=== PATIENT | male | born 1960 | race Hispanic/Latino ===

== ENCOUNTER 2019-01-15 16:17 | Emergency (ER) | payer BC, OTHER, SELFPAY ==
[2019-01-15 16:57] LABS: Absolute Lymphocytes (CBC) 1.9 K/uL (0.7-4.9); Eosinophils % 5.9 % (0-4.4); Hematocrit 42.4 % (39.6-49.0); Lymphocytes % 25.4 % (15.3-44.8); MPV 7.8 fL (7.6-11.3); Monocytes % 5.5 % (3.3-12.3); RBC Red Blood Cell Count 4.98 M/uL (4.33-5.43)
[2019-01-15 17:02] LABS: Protime INR 1.1
[2019-01-15 17:14] LABS: ALT/SGPT 24 U/L (12-78); AST/SGOT 14 U/L (15-37); Albumin 3.7 g/dL (3.4-5.0); Alkaline Phosphatase 90 U/L (45-117); BUN Blood Urea Nitrogen 13 mg/dL (7-18); Bicarbonate 30 mmol/L (21-32); Bilirubin Direct 0.2 mg/dL (0-0.2); Bilirubin Total 0.5 mg/dL (0.2-1.0); Glucose Level 116 mg/dL (74-106); Magnesium 2.1 mg/dL (1.8-2.4); NT PRO-BNP 108 pg/mL (<125); Potassium 3.8 mmol/L (3.5-5.1); Protein, Total 8.1 g/dL (6.4-8.2); Sodium Level 143 mmol/L (136-145); Troponin (Emerg Dept Use Only) < 0.02 ng/mL (0.0-0.045)
--- NOTE | 2019-01-15 17:33 | RAD REPORT ---
EXAM DESCRIPTION: RAD - Chest Single View - 01/15/2019 4:53 pm CLINICAL HISTORY: Shortness of breath, history of atrial fibrillation COMPARISON: November 2015 TECHNIQUE: AP portable chest image was obtained 1648 hours . FINDINGS: Lung volumes are low. Interstitial markings are prominent but not clearly different from c omparison. This could potentially mask early interstitial edema or infiltrate. Heart size is prominen t, magnified by body habitus and AP technique. No measurable pleural effusion and no pneumothorax. No acute bony abnormality seen. No acute aortic findings suspected. IMPRESSION: Shallow inspiration film showing no peripheral mass or consolidation. Chest is not substantially different from comparison. Shallow inspiration could mask early failure or volume overload.
--- NOTE | 2019-01-15 18:05 | EDPHYS ---
Physician Documentation [facility] Name: Tari Shen Jr Age: 58 yrs Sex: Male : 1960 Arrival Date: 01/15/2019 Time: 16:18 Bed 27 Private MD: ED Physician Jose Montanez HPI: 01/15 18:01 This 58 yrs old Male presents to ER via Ambulatory with complaints of iban Palpitations, Shortness Of Breath. 18:01 The patient presents with a history of irregular heart beat, heart racing. Context: The iban symptoms occur with light activity, with strenuous activity. Onset: The symptoms/episode began/occurred just prior to arrival. Duration: The patient or guardian reports a single episode. Modifying factors: The symptoms are aggravated by nothing. The symptoms are alleviated by remaining still, rest. Associated signs and symptoms: The patient has no apparent associated signs or symptoms. Severity of symptoms: At their worst the symptoms were mild in the emergency department the symptoms have improved moderately. The patient has experienced similar episodes in the past, several times. Historical: - Allergies: 16:20 No Known Allergies; aa5 - PMHx: 16:20 Atrial Fib; Hyperlipidemia; Hypertension; CHF; aa5 - PSHx: 16:20 Cholecystectomy; aa5 - Immunization history:: Adult Immunizations up to date. - Ebola Screening: : No symptoms or risks identified at this time. - Social history:: Smoking status: Patient/guardian denies using tobacco. ROS: 18:01 Constitutional: Negative for fever, chills, and weight loss, Eyes: Negative for injury, iban pain, redness, and discharge, ENT: Negative for injury, pain, and discharge, Neck: Negative for injury, pain, and swelling, Respiratory: Negative for shortness of breath, cough, wheezing, and pleuritic chest pain, Abdomen/GI: Negative for abdominal pain, nausea, vomiting, diarrhea, and constipation, Back: Negative for injury and pain, : Negative for injury, bleeding, discharge, and swelling, MS/Extremity: Negative for injury and deformity, Skin: Negative for injury, rash, and discoloration, Neuro: Negative for headache, weakness, numbness, tingling, and seizure, Psych: Negative for depression, anxiety, suicide ideation, homicidal ideation, and hallucinations, Allergy/Immunology: Negative for hives, rash, and allergies, Endocrine: Negative for neck swelling, polydipsia, polyuria, polyphagia, and marked weight changes, Hematologic/Lymphatic: Negative for swollen nodes, abnormal bleeding, and unusual bruising. 18:01 Cardiovascular: Positive for palpitations. Exam: 18:01 Constitutional: This is a well developed, well nourished patient who is awake, alert, iban and in no acute distress. Head/Face: Normocephalic, atraumatic. Eyes: Pupils equal round and reactive to light, extra-ocular motions intact. Lids and lashes normal. Conjunctiva and sclera are non-icteric and not injected. Cornea within normal limits. Periorbital areas with no swelling, redness, or edema. ENT: Nares patent. No nasal discharge, no septal abnormalities noted. Tympanic membranes are normal and external auditory canals are clear. Oropharynx with no redness, swelling, or masses, exudates, or evidence of obstruction, uvula midline. Mucous membranes moist. Neck: Trachea midline, no thyromegaly or masses palpated, and no cervical lymphadenopathy. Supple, full range of motion without nuchal rigidity, or vertebral point tenderness. No Meningismus. Chest/axilla: Normal chest wall appearance and motion. Nontender with no deformity. No lesions are appreciated. Cardiovascular: Regular rate and rhythm with a normal S1 and S2. No gallops, murmurs, or rubs. Normal PMI, no JVD. No pulse deficits. Respiratory: Lungs have equal breath sounds bilaterally, clear to auscultation and percussion. No rales, rhonchi or wheezes noted. No increased work of breathing, no retractions or nasal flaring. Abdomen/GI: Soft, non-tender, with normal bowel sounds. No distension or tympany. No guarding or rebound. No evidence of tenderness throughout. Back: No spinal tenderness. No costovertebral tenderness. Full range of motion. Male : Normal genitalia with no discharge or lesions. Skin: Warm, dry with normal turgor. Normal color with no rashes, no lesions, and no evidence of cellulitis. MS/ Extremity: Pulses equal, no cyanosis. Neurovascular intact. Full, normal range of motion. Neuro: Awake and alert, GCS 15, oriented to person, place, time, and situation. Cranial nerves II-XII grossly intact. Motor strength 5/5 in all extremities. Sensory grossly intact. Cerebellar exam normal. Normal gait. Psych: Awake, alert, with orientation to person, place and time. Behavior, mood, and affect are within normal limits. Vital Signs: 16:21 BP 178 / 105; Pulse 114; Resp 26 S; Temp 98.1(O); Pulse Ox 94% on R/A; Pain 0/10; aa5 16:57 BP 178 / 81; Pulse 76; Resp 14 S; Pulse Ox 100% on R/A; ca1 18:15 BP 167 / 83; Pulse 81; Resp 18 S; Pulse Ox 95% on R/A; ca1 MDM: 16:25 Patient medically screened. [facility] 18:02 Data reviewed: vital signs, nurses notes, lab test result(s), EKG, radiologic studies. iban 01/15 16:33 Order name: Basic Metabolic Panel 01/15 16:33 Order name: CBC with Diff; Complete Time: 17:47 ca1 01/15 16:33 Order name: LFT's; Complete Time: 17:47 01/15 16:33 Order name: Magnesium; Complete Time: 17:47 01/15 16:33 Order name: NT PRO-BNP; Complete Time: 17:47 ca1 01/15 16:33 Order name: PT-INR; Complete Time: 17:47 ca1 01/15 16:33 Order name: Troponin (emerg Dept Use Only); Complete Time: 17:47 ca1 01/15 16:33 Order name: XRAY Chest (1 view); Complete Time: 17:47 ca1 01/15 16:33 Order name: EKG; Complete Time: 16:35 ca1 01/15 16:33 Order name: Cardiac monitoring; Complete Time: 16:34 ca1 01/15 16:33 Order name: EKG - Nurse/Tech; Complete Time: 16:34 ca1 01/15 16:34 Order name: Basic Metabolic Panel; Complete Time: 17:47 EDMS 01/15 17:47 Order name: TSH 01/15 18:03 Order name: EKG; Complete Time: 18:04 iban 01/15 16:33 Order name: IV Saline Lock; Complete Time: 16:34 ca1 01/15 16:33 Order name: Labs collected and sent; Complete Time: 16:34 ca1 07/15 16:33 Order name: O2 Per Protocol; Complete Time: 16:34 ca1 01/15 16:33 Order name: O2 Sat Monitoring; Complete Time: 16:34 ca1 01/15 18:03 Order name: EKG - Nurse/Tech; Complete Time: 18:11 iban Administered Medications: No medications were administered Disposition: 01/15/19 18:04 Discharged to Home. Impression: Palpitations, Atrial fibrillation and flutter. - Condition is Stable. - Discharge Instructions: Atrial Fibrillation, Palpitations, Atrial Flutter, Palpitations, [id number], Atrial Fibrillation, [id number]. - Medication Reconciliation Form, Thank You Letter, Antibiotic Education, Prescription Opioid Use form. - Follow up: Private Physician; When: 2 - 3 days; Reason: Recheck today's complaints, Continuance of care, Re-evaluation by your physician. Follow up: Say Mcrae MD; When: 2 - 3 days; Reason: Recheck today's complaints, Continuance of care, Re-evaluation by your physician. - Problem is new. - Symptoms have improved. Signatures: Dispatcher [employer] EDJose Ng MD MD cha Calderon, Audri, RN RN aa5 Lulu Selby RN RN ss Estrellita Marshall RN RN ca1 Corrections: (The following items were deleted from the chart) 18:21 18:04 01/15/2019 18:04 Discharged to Home. Impression: Palpitations; Atrial ss fibrillation and flutter. Condition is Stable. Forms are Medication Reconciliation Form, Thank You Letter, Antibiotic Education, Prescription Opioid Use. Follow up: Private Physician; When: 2 - 3 days; Reason: Recheck today's complaints, Continuance of care, Re-evaluation by your physician. Follow up: Say Mcrae; When: 2 - 3 days; Reason: Recheck today's complaints, Continuance of care, Re-evaluation by your physician. Problem is new. Symptoms have improved. iban
--- NOTE | 2019-01-15 18:05 | ER ---
Nurse's Notes [facility] Name: Tari Shen Jr Age: 58 yrs Sex: Male : 1960 Arrival Date: 01/15/2019 Time: 16:18 Bed 27 Private MD: Diagnosis: Palpitations;Atrial fibrillation and flutter Presentation: 01/15 16:18 Presenting complaint: Patient states: "I started feeling short of breath and having aa5 palpitations about 10 minutes ago". Pt denies pain. 16:18 Acuity: NIMESH 2 aa5 16:18 Transition of care: patient was not received from another setting of care. Onset of aa5 symptoms was January 15, 2019. Risk Assessment: Do you want to hurt yourself or someone else? Patient reports no desire to harm self or others. Care prior to arrival: None. 16:18 Method Of Arrival: Ambulatory aa5 16:30 Initial Sepsis Screen: Does the patient meet any 2 criteria? No. Patient's initial ca1 sepsis screen is negative. Does the patient have a suspected source of infection? No. Patient's initial sepsis screen is negative. Triage Assessment: 16:30 General: Appears in no apparent distress. comfortable, Behavior is calm, cooperative, ca1 appropriate for age. Pain: Denies pain. Respiratory: Reports shortness of breath at rest Onset: The symptoms/episode began/occurred suddenly, the patient has mild shortness of breath. Historical: - Allergies: 16:20 No Known Allergies; aa5 - PMHx: 16:20 Atrial Fib; Hyperlipidemia; Hypertension; CHF; aa5 - PSHx: 16:20 Cholecystectomy; aa5 - Immunization history:: Adult Immunizations up to date. - Ebola Screening: : No symptoms or risks identified at this time. - Social history:: Smoking status: Patient/guardian denies using tobacco. Screenin:30 Abuse screen: Denies threats or abuse. Denies injuries from another. Nutritional ca1 screening: No deficits noted. Tuberculosis screening: No symptoms or risk factors identified. Fall Risk IV access (20 points). Assessment: 16:30 General: Appears in no apparent distress. comfortable, Behavior is calm, cooperative, ca1 appropriate for age. 16:30 Pain: Denies pain. Neuro: Level of Consciousness is awake, alert, obeys commands, ca1 Oriented to person, place, time, situation. Cardiovascular: Heart tones S1 S2 present Capillary refill < 3 seconds Patient's skin is warm and dry. Pulses are all present. Rhythm is sinus tachycardia. Respiratory: Reports shortness of breath on exertion Airway is patent Respiratory effort is even, unlabored, Respiratory pattern is regular, symmetrical, Breath sounds are clear bilaterally. GI: Abdomen is round non-distended, Bowel sounds present X 4 quads. Abd is soft and non tender X 4 quads. : No deficits noted. No signs and/or symptoms were reported regarding the genitourinary system. EENT: No deficits noted. No signs and/or symptoms were reported regarding the EENT system. Derm: Skin is intact, is healthy with good turgor, Skin is pink, warm \\T\\ dry. Musculoskeletal: Circulation, motion, and sensation intact. Capillary refill < 3 seconds, Range of motion: intact in all extremities. 17:30 Reassessment: Patient appears in no apparent distress at this time. Patient and/or ca1 family updated on plan of care and expected duration. Pain level reassessed. Patient is alert, oriented x 3, equal unlabored respirations, skin warm/dry/pink. 18:15 Reassessment: Patient appears in no apparent distress at this time. Patient and/or ca1 family updated on plan of care and expected duration. Pain level reassessed. Patient is alert, oriented x 3, equal unlabored respirations, skin warm/dry/pink. Cardiovascular: Rhythm is sinus rhythm. Vital Signs: 16:21 BP 178 / 105; Pulse 114; Resp 26 S; Temp 98.1(O); Pulse Ox 94% on R/A; Pain 0/10; aa5 16:57 BP 178 / 81; Pulse 76; Resp 14 S; Pulse Ox 100% on R/A; ca1 18:15 BP 167 / 83; Pulse 81; Resp 18 S; Pulse Ox 95% on R/A; ca1 ED Course: 16:18 Patient arrived in ED. rg4 16:18 Arm band placed on Patient placed in an exam room, on a stretcher. aa5 16:23 EKG done, by ED staff. aa5 16:24 Triage completed. aa5 16:25 Jose Montanez MD is Attending Physician. iban 16:30 Patient has correct armband on for positive identification. Placed in gown. Bed in low ca1 position. Call light in reach. Side rails up X 1. cafeteria monitor on. Pulse ox on. NIBP on. Warm blanket given. Head of bed elevated. 16:30 Inserted saline lock: 20 gauge in left antecubital area, using aseptic technique. Blood ca1 collected. 16:32 Estrellita Marshall, MARLENE is Primary Nurse. ca1 16:53 XRAY Chest (1 view) In Process Unspecified. EDMS 18:03 Say Mcrae MD is Referral Physician. [facility] 18:20 No provider procedures requiring assistance completed. IV discontinued, intact, ss bleeding controlled, No redness/swelling at site. Pressure dressing applied. Administered Medications: No medications were administered Outcome: 18:04 Discharge ordered by . [facility] 18:20 Discharged to home ambulatory, with family. ss 18:20 Condition: good 18:20 Discharge instructions given to patient, family, Instructed on discharge instructions, follow up and referral plans. medication usage, Demonstrated understanding of instructions, follow-up care, medications. 18:21 Patient left the ED. ss Signatures: Dispatcher [employer] EDMT Jose Montanez MD MD cha Calderon, Audri, RN RN aa5 Lulu Selby RN RN ss Garcia, Rubi rg4 Estrellita Marshall RN RN ca1 Corrections: (The following items were deleted from the chart) 17:15 16:25 General: Appears in no apparent distress. uncomfortable, unkempt, Behavior is ca1 calm, cooperative, appropriate for age, Reports general weakness for about a week now ca1 17:15 16:25 Pain: Complains of pain in low back area Pain does not radiate. Pain currently is ca1 8 out of 10 on a pain scale. Pain began Is chronic, ca1 17:15 16:25 Pain: Aggravated by repositioning, ca1 ca1 17:15 16:25 Neuro: Level of Consciousness is awake, alert, obeys commands, Oriented to ca1 person, place, time, situation, ca1 17:15 16:25 Cardiovascular: Heart tones S1 S2 present Capillary refill < 3 seconds Patient's ca1 skin is warm and dry. Rhythm is sinus rhythm ca1 20:38 16:30 Pain: Complains of pain in back and low back area Pain currently is 8 out of 10 ca1 on a pain scale. ca1
--- NOTE | 2019-01-15 20:04 | EKG ---
Test Date: 2019-01-15 Test Time: 16:24:39 Parts Runner: [facility] MEASUREMENT RESULTS: Intervals: Rate: 112 MS: QRSD: 98 QT: 356 QTc: 485 [place]: P: MS: QRS: -2 T: 39 INTERPRETIVE STATEMENTS: Atrial fibrillation with rapid ventricular response with premature ventricular or aberrantly conducted complexes Abnormal ECG Compared to ECG 05/11/2005 08:23:00 Ventricular premature complex(es) now present Sinus bradycardia no longer present Left ventricular hypertrophy no longer present T-wave abnormality no longer present Electronically Signed On 01-15-19 20:03:44 CDT by Manish Gan
--- NOTE | 2019-01-16 11:10 | EKG ---
Test Date: 2019-01-15 Test Time: 18:10:22 Quilter Fixer: ABAD MEASUREMENT RESULTS: Intervals: Rate: 63 LA: 192 QRSD: 98 QT: 406 QTc: 415 [place]: P: 50 LA: 192 QRS: 31 T: 21 INTERPRETIVE STATEMENTS: Normal sinus rhythm Possible Anterior infarct, age undetermined Abnormal ECG Compared to ECG 01/15/2019 16:24:39 Myocardial infarct finding now present Atrial fibrillation no longer present Ventricular premature complex(es) no longer present Aberrant conduction of supraventricular beat(s) no longer present Electronically Signed On 01-16-19 11:08:03 CDT by Michael Moreno
== END 2019-01-15 18:21 | disposition home or self-care (01) ==
LOC: ER 16:17
DX: I48.91 Unspecified atrial fibrillation (principal); I48.92 Unspecified atrial flutter; I10 Essential (primary) hypertension
CPT/HCPCS: 36415; 71045; 80048; 80076; 83735; 83880; 84443; 84484; 85025; 85610; 93005; 99284

== ENCOUNTER 2023-12-17 01:15 | Emergency (ER) | payer OTHER ==
[2023-12-17] MEDS ORDERED: FUROSEMIDE 20 MG/ 2ML VIAL ONE (01:54)
[2023-12-17 02:22] LABS: Absolute Eosinophils 0.4 K/uL (0-0.5); Absolute Monocytes 0.4 K/uL (0.1-1.3); Absolute Neutrophil 4.6 K/uL (1.8-8.0); Basophils % 0.5 % (0-1.3); Eosinophils % 5.8 % (0-4.4); Hematocrit 40.3 % (39.6-49.0); Hemoglobin 13.3 g/dL (13.6-17.9); Lymphocytes % 26.3 % (15.3-44.8); MCH 27.2 pg (27.0-35.0); MCHC 32.9 g/dL (32.0-36.0); MCV 82.7 fL (80-100); MPV 7.3 fL (7.6-11.3); Monocytes % 5.3 % (3.3-12.3); Neutrophils % 62.1 % (41.7-73.7); Nucleated Red Blood Cells % 0.1 % (0-0); Platelets 277 thou/uL (152-406); RBC Red Blood Cell Count 4.87 M/uL (4.33-5.43); Red Cell Distribution Width 16.3 % (12.1-15.2)
[2023-12-17 02:34] LABS: ALT/SGPT 24 U/L (16-61); Albumin 3.4 g/dL (3.4-5.0); Albumin/Globulin Ratio 0.8 (1.1-1.8); Alkaline Phosphatase 84 U/L (45-117); Anion Gap 7.5 mEq/L (5.0-15.0); BUN Blood Urea Nitrogen 17 mg/dL (7-18); Bicarbonate 33 mEq/L (21-32); Bilirubin Direct 0.2 mg/dL (0-0.2); Bilirubin Indirect, Calculated 0.4 mg/dL (0.2-0.8); Bilirubin Total 0.6 mg/dL (0.2-1.0); Globulin 4.3 g/dL (2.3-3.5); Glomerular Filtration Rate 73 ml/min (=/>90); Glucose Level 150 mg/dL (74-106); Magnesium 2.1 mg/dL (1.6-2.4); NT PRO-BNP 44 pg/mL (<125); Potassium 3.5 mEq/L (3.5-5.1); Protein, Total 7.7 g/dL (6.4-8.2); Sodium Level 140 mEq/L (136-145)
[2023-12-17 02:43] LABS: AST/SGOT < 10 U/L (15-37)
--- NOTE | 2023-12-17 03:48 | EDPHYS ---
Physician Documentation [facility] Name: Tari Shen Jr Age: 63 yrs Sex: Male : 1960 Arrival Date: 12/17/2023 Time: 01:15 Bed 5 Private MD: ED Physician Jonathan Stokes HPI: 12/16 02:15 This 63 yrs old Male presents to ER via Ambulatory with complaints of rt Irregular Pulse, Shortness Of Breath. 02:15 Patient with history of CHF presents to the ED with palpitations, shortness of breath rt starting tonight. Patient reports compliance with his Lasix. Denies chest pain. Denies other acute complaints, symptoms are moderate in severity, no other aggravating or alleviating factors.. Historical: - Allergies: : No Known Allergies; lg3 - Home Meds: Lasix 40 mg Oral tablet daily [Active]; pravastatin 40 mg oral tablet daily [Active]; lg3 carvedilol 12.5 mg oral tablet 2 times per day [Active]; Clonidine Oral [Active]; Farxiga oral [Active]; Entresto oral [Active]; - PMHx: :29 Atrial Fib; CHF; Hyperlipidemia; Hypertension; lg3 - PSHx: : Cholecystectomy; cardiac stent; lg3 - Immunization history:: Adult Immunizations up to date. - Infectious Disease History:: Denies. - Social history:: Smoking status: Patient denies any tobacco usage or history of. Patient uses alcohol, occasionally. - Family history:: not pertinent. ROS: 02:15 Constitutional: Negative for fever, chills, and weight loss, Abdomen/GI: Negative for rt abdominal pain, nausea, vomiting, diarrhea, and constipation, MS/Extremity: Negative for injury and deformity, Skin: Negative for injury, rash, and discoloration, Neuro: Negative for headache, weakness, numbness, tingling, and seizure, 02:15 Cardiovascular: Positive for palpitations, Negative for chest pain, 02:15 Respiratory: Positive for shortness of breath, Negative for cough, Exam: 02:15 Constitutional: This is a well developed, well nourished patient who is awake, alert, rt and in no acute distress. Head/Face: Normocephalic, atraumatic. Chest/axilla: Normal chest wall appearance and motion. Nontender with no deformity. No lesions are appreciated. Cardiovascular: Regular rate and rhythm with a normal S1 and S2. No gallops, murmurs, or rubs. Normal PMI, no JVD. No pulse deficits. Abdomen/GI: Soft, non-tender, with normal bowel sounds. No distension or tympany. No guarding or rebound. No evidence of tenderness throughout. Skin: Warm, dry with normal turgor. Normal color with no rashes, no lesions, and no evidence of cellulitis. MS/ Extremity: Pulses equal, no cyanosis. Neurovascular intact. Full, normal range of motion. Neuro: Awake and alert, GCS 15, oriented to person, place, time, and situation. Cranial nerves II-XII grossly intact. Motor strength 5/5 in all extremities. Sensory grossly intact. Cerebellar exam normal. Normal gait. 02:15 ECG was reviewed by the Attending Physician. 02:15 Respiratory: Bibasilar crackles noted, no respiratory distress, Vital Signs: 01:27 BP 136 / 79; Pulse 89; Resp 19 S; Temp 98.1(TE); Pulse Ox 94% on 3 lpm NC; Weight lg3 145.15 kg (R); Height 5 ft. 9 in. ; 01:47 BP 120 / 65; Pulse 79; Resp 20; Temp 98.4; Pulse Ox 99% on 3 lpm NC; Pain 2/10; rg5 03:40 BP 104 / 56; Pulse 71; Resp 19; Temp 98; Pulse Ox 97% on R/A; Pain 0/10; rg5 01:27 Body Mass Index 47.26 (145.15 kg, 175.26 cm) lg3 01:47 Pain Scale: Adult rg5 03:40 Pain Scale: Adult rg5 Quinn Coma Score: 01:47 Eye Response: spontaneous(4). Motor Response: obeys commands(6). Verbal Response: rg5 oriented(5). Total: 15. MDM: 01:36 Patient medically screened. rt 03:47 Differential diagnosis: CHF, pneumonia, pneumothorax, dysrhythmia. Data reviewed: vital rt signs, nurses notes, lab test result(s), EKG, radiologic studies. Consideration of Admission/Observation Escalation of care including admission/observation considered. Stable vital signs, unremarkable labs, symptoms have resolved with treatment in the ED, no immediate indications for mission to the hospital at this time, return precautions discussed.. I considered the following discharge prescriptions or medication management in the emergency department Medications were administered in the Emergency Department. See MAR. Independent interpretation of the following test(s) in the Emergency Department X-Ray: My interpretation is Mild pulmonary edema seen on interpretation of x-ray images. Care significantly affected by the following chronic conditions: Congestive Heart Failure. Counseling: I had a detailed discussion with the patient and/or guardian regarding the historical points, exam findings, and any diagnostic results supporting the discharge/admit diagnosis, lab results, radiology results, the need for outpatient follow up, to return to the emergency department if symptoms worsen or persist or if there are any questions or concerns that arise at home. Response to treatment: the patient's symptoms have markedly improved after treatment. 12/16 01:41 Order name: Basic Metabolic Panel; Complete Time: 02:44 rt 12/16 01:41 Order name: CBC with Diff; Complete Time: 02:44 rt 12/16 01:41 Order name: LFT's; Complete Time: 02:44 rt 12/16 01:41 Order name: Magnesium; Complete Time: 02:44 rt 12/16 01:41 Order name: NT PRO-BNP; Complete Time: 02:44 rt 12/16 01:41 Order name: Troponin HS; Complete Time: 02:44 rt 12/16 01:41 Order name: XRAY Chest (1 view) rt 12/16 01:41 Order name: EKG; Complete Time: 01:41 rt 12/16 01:41 Order name: Cardiac monitoring; Complete Time: :49 rt 12/16 01:41 Order name: EKG - Nurse/Tech; Complete Time: :49 rt 12/16 01:41 Order name: IV Saline Lock; Complete Time: :49 rt 12/16 01:41 Order name: Labs collected and sent; Complete Time: :49 rt 12/16 01:41 Order name: O2 Per Protocol; Complete Time: : rt 12/16 01:41 Order name: O2 Sat Monitoring; Complete Time: :49 rt EC:15 Rate is 88 beats/min. Rhythm is regular, Normal Sinus Rhythm with No ectopy. QRS [place] rt is Normal. CO interval is normal. QRS interval is normal. QT interval is normal. No Q waves. T waves are Normal. No ST changes noted. Interpreted by me. Administered Medications: 01:58 Drug: Furosemide IVP 40 mg IVP once; give over 2 minutes Route: IVP; Site: right rg5 antecubital; 03:33 Follow up: Response: No adverse reaction rg5 04:11 Follow up: Response: No adverse reaction rg5 Disposition Summary: 12/17/23 03:47 Discharge Ordered Notes: Location: Home rt Problem: an acute exacerbation rt Symptoms: have improved rt Condition: Stable rt Diagnosis - CHF exacerbation rt Followup: rt - With: Private Physician - When: 2 - 3 days - Reason: Discharge Instructions: - Discharge Summary Sheet rt - Heart Failure Exacerbation rt Forms: - Medication Reconciliation Form rt - Antibiotic Education rt - Prescription Opioid Use rt - Patient Portal Instructions rt - Leadership Thank You Letter rt Signatures: Dispatcher [employer] Renetta Strickland RN RN lg3 Jonathan Stokes MD MD rt Yair Pichardo RN RN rg5 Corrections: (The following items were deleted from the chart) 01:41 01:41 BASIC METABOLIC PANEL+C.LAB.BRZ ordered. EDMS EDMS 01:41 01:41 CBC+H.LAB.BRZ ordered. EDMS EDMS 01:41 01:41 HEPATIC FUNCTION+C.LAB.BRZ ordered. EDMS EDMS 01:41 01:41 MAGNESIUM+C.LAB.BRZ ordered. EDMS EDMS 01:41 01:41 PROBNP+C.LAB.BRZ ordered. EDMS EDMS 01:41 01:41 Troponin High Sensitivity+C.LAB.BRZ ordered. EDMS EDMS
--- NOTE | 2023-12-17 03:48 | ER ---
Nurse's Notes [facility] Name: Tari Shen Jr Age: 63 yrs Sex: Male : 1960 Arrival Date: 12/17/2023 Time: : Bed 5 Private MD: Diagnosis: CHF exacerbation Presentation: 12/16 01:27 Chief complaint: Patient states: palpitations with SOB X2 hr. Coronavirus screen: lg3 Client denies travel out of the [place] in the last 14 days. At this time, the client does not indicate any symptoms associated with coronavirus-19. Ebola Screen: No symptoms or risks identified at this time. Initial Sepsis Screen: Does the patient meet any 2 criteria? No. Patient's initial sepsis screen is negative. Does the patient have a suspected source of infection? No. Patient's initial sepsis screen is negative. Risk Assessment: Do you want to hurt yourself or someone else? Patient reports no desire to harm self or others. Onset of symptoms was December 17, 2023. : Method Of Arrival: Ambulatory 3 01:27 Acuity: NIMESH 3 lg3 Triage Assessment: 01:29 General: Appears in no apparent distress. uncomfortable, Behavior is calm, cooperative. lg3 Pain: Denies pain. EENT: No deficits noted. No signs and/or symptoms were reported regarding the EENT system. Neuro: No deficits noted. Dean Agitation-Sedation Scale (RASS): 0 - Alert and Calm Level of Consciousness is awake, alert, obeys commands, Oriented to person, place, time, situation. Cardiovascular: Reports palpitations, shortness of breath, Capillary refill < 3 seconds Clubbing of nail beds is absent JVD is absent Patient's skin is warm and dry. Respiratory: Reports shortness of breath Airway is patent Respiratory effort is even, unlabored, Respiratory pattern is regular, symmetrical. GI: No deficits noted. No signs and/or symptoms were reported involving the gastrointestinal system. : No deficits noted. No signs and/or symptoms were reported regarding the genitourinary system. Derm: No deficits noted. No signs and/or symptoms reported regarding the dermatologic system. Skin is intact, is healthy with good turgor, Skin is dry, Skin is normal, Skin temperature is warm. Musculoskeletal: No deficits noted. No signs and/or symptoms reported regarding the musculoskeletal system. Circulation, motion, and sensation intact. Range of motion: intact in all extremities. Historical: - Allergies: : No Known Allergies; lg3 - Home Meds: : Lasix 40 mg Oral tablet daily [Active]; pravastatin 40 mg oral tablet daily [Active]; lg3 carvedilol 12.5 mg oral tablet 2 times per day [Active]; Clonidine Oral [Active]; Farxiga oral [Active]; Entresto oral [Active]; - PMHx: Atrial Fib; CHF; Hyperlipidemia; Hypertension; lg3 - PSHx: : Cholecystectomy; cardiac stent; lg3 - Immunization history:: Adult Immunizations up to date. - Infectious Disease History:: Denies. - Social history:: Smoking status: Patient denies any tobacco usage or history of. Patient uses alcohol, occasionally. - Family history:: not pertinent. Screenin:59 [facility] ED Fall Risk Assessment (Adult) History of falling in the last 3 months, rg5 including since admission No falls in past 3 months (0 pts). Abuse screen: Denies threats or abuse. Nutritional screening: No deficits noted. Tuberculosis screening: No symptoms or risk factors identified. Assessment: 01:39 General: Appears comfortable, Reports. Pain: Complains of pain in chest Pain currently rg5 is 2 out of 10 on a pain scale. Quality of pain is described as pressure. Neuro: Level of Consciousness is awake, alert, obeys commands, Oriented to person, place, time, situation, Appropriate for age. Cardiovascular: Reports palpitations, shortness of breath. Respiratory: Airway is patent Trachea midline Respiratory pattern is symmetrical, Breath sounds are clear bilaterally. GI: Abd is soft and non tender X 4 quads. Patient currently denies pain. :. 01:40 Pain: Pain does not radiate. Pain began 1 hour ago. rg5 03:36 Reassessment: Patient and/or family updated on plan of care and expected duration. Pain rg5 level reassessed. Patient is alert, oriented x 3, equal unlabored respirations, skin warm/dry/pink. Patient states feeling better. Pain: Denies pain. Vital Signs: 01:27 BP 136 / 79; Pulse 89; Resp 19 S; Temp 98.1(TE); Pulse Ox 94% on 3 lpm NC; Weight lg3 145.15 kg (R); Height 5 ft. 9 in. ; 01:47 BP 120 / 65; Pulse 79; Resp 20; Temp 98.4; Pulse Ox 99% on 3 lpm NC; Pain 2/10; rg5 03:40 BP 104 / 56; Pulse 71; Resp 19; Temp 98; Pulse Ox 97% on R/A; Pain 0/10; rg5 01:27 Body Mass Index 47.26 (145.15 kg, 175.26 cm) lg3 01:47 Pain Scale: Adult rg5 03:40 Pain Scale: Adult rg5 Goodman Coma Score: 01:47 Eye Response: spontaneous(4). Motor Response: obeys commands(6). Verbal Response: rg5 oriented(5). Total: 15. ED Course: 01:15 Patient arrived in ED. jj6 01:16 Jonathan Stokes MD is Attending Physician. rt 01:29 Triage completed. lg3 01:29 Arm band placed on right wrist. lg3 01:35 EKG completed in triage. Results shown to MD. rg5 01:39 Yair Pichardo, RN is Primary Nurse. rg5 01:41 Door closed. Noise minimized. Lights dimmed. kmf 01:41 Inserted saline lock: 22 gauge in right antecubital area, using aseptic technique. [facility] Blood collected. 01:41 Initial lab(s) drawn, by wi, sent to lab. kmf 01:41 EKG done, by ED staff, by game technician. reviewed by Jonathan Stokes MD. kmf 01:49 Basic Metabolic Panel Sent. kmf 01:49 CBC with Diff Sent. kmf 01:49 LFT's Sent. kmf 01:49 Magnesium Sent. kmf 01:49 NT PRO-BNP Sent. kmf 01:49 Troponin HS Sent. kmf 01:59 Resting quietly. Awaiting lab results, Awaiting radiology results. rg5 01:59 Patient has correct armband on for positive identification. Bed in low position. Call rg5 light in reach. Side rails up X 1. Adult w/ patient. Client placed on continuous cardiac and pulse oximetry monitoring. NIBP monitoring applied. awake overnight monitor on. Pulse ox on. NIBP on. 01:59 Oxygen administration via nasal cannula \T\ 3L/min. rg5 02:08 XRAY Chest (1 view) In Process Unspecified. EDMS 03:54 No provider procedures requiring assistance completed. IV discontinued. rg5 04:13 Provided Education on: Post ER care. rg5 Administered Medications: 01:58 Drug: Furosemide IVP 40 mg IVP once; give over 2 minutes Route: IVP; Site: right rg5 antecubital; 03:33 Follow up: Response: No adverse reaction rg5 04:11 Follow up: Response: No adverse reaction rg5 Medication: 01:47 VIS not applicable for this client. rg5 Outcome: 03:47 Discharge ordered by . rt 04:12 Discharged to home ambulatory, rg5 04:12 Condition: stable 04:12 Discharge instructions given to patient, family, Demonstrated understanding of instructions, follow-up care, 04:14 Patient left the ED. rg5 Signatures: Dispatcher [employer] Renetta Strickland RN RN lg3 Zaina [id number] Jonathan Stokes MD MD rt Forrester, Kelsey Maroul [facility] Yair Pichardo RN RN rg5
[2023-12-17 04:39] VITALS: BP 104/56; TEMP 98; O2SAT 97
--- NOTE | 2023-12-17 19:33 | RAD REPORT ---
EXAM DESCRIPTION: RAD - Chest Single View - 12/17/2023 2:06 am CLINICAL HISTORY: Dyspnea COMPARISON: None TECHNIQUE: Chest 1 View AP FINDINGS: Trachea midline. Heart size and pulmonary vessels within normal limits. Lungs clear without evidence of consolidation, mass, or significant pulmonary edema. No significant pleural effusion or pneumothorax. Thoracic spine degenerative disease. IMPRESSION: Unremarkable chest radiograph. Electronically signed by: Koby Vera MD 12/17/2023 03:38 AM CDT RP Due to temporary technical issues with the PACS/Fluency reporting system, reports are being signed by the in house radiologists without review as a courtesy to insure prompt reporting. The interpreting radiologist is fully responsible for the content of the report.
--- NOTE | 2023-12-19 14:59 | EKG ---
Test Date: 2023-12-17 Test Time: 01:24:57 [employer]iver: EJ MEASUREMENT RESULTS: Intervals: Rate: 88 [place]: 148 QRSD: 92 QT: 376 QTc: 454 [place]: P: 43 [place]: 148 QRS: -19 T: 36 INTERPRETIVE STATEMENTS: Normal sinus rhythm Normal ECG Compared to ECG 01/15/2019 18:10:22 Myocardial infarct finding no longer present Electronically Signed On 12-19-23 14:52:45 CDT by Chicho Bolivar
== END 2023-12-17 04:14 | disposition home or self-care (01) ==
LOC: ER 01:15
DX: I50.9 Heart failure, unspecified (principal); I10 Essential (primary) hypertension; Z95.818 Presence of other cardiac implants and grafts
CPT/HCPCS: 93005; 85025; 80048; 36415; 83735; 80076; 84484; 83880; 71045; 96374; 99285; J1940